=== PATIENT | male | born 1940 | race Caucasian/White ===

== ENCOUNTER 2020-05-18 18:34 | Inpatient (IN) ==
[2020-05-18] MEDS ORDERED: Furosemide 40 MG/4 ML VIAL IVP ONE (18:47)
[2020-05-18] MEDS ORDERED: cefTRIAXone 1,000 MG in 0.9 % Sodium Chloride Mini Bag 100 ML IVPB ONE (18:59)
[2020-05-18] MEDS ORDERED: Azithromycin 500 MG in 0.9 % Sodium Chloride 250 ML IVPB ONE (18:59)
[2020-05-18 19:14] LABS: Basophils # 0.1 K/mcL (0.0-0.2); Basophils % 0.6 %; Eosinophils # 0.4 K/mcL (0.0-0.6); Eosinophils % 2.8 %; Hematocrit 44.8 % (37.5-50.1); Hemoglobin 14.1 g/dL (12.9-16.9); Immature Granulocytes % 0.6 % (0-4); Lymphocytes # 3.8 K/mcL (0.6-4.6); Mean Corpuscular HGB Conc 31.5 g/dL (31.6-35.5); Mean Corpuscular Hemoglobin 28.9 pg (28.0-33.3); Mean Corpuscular Volume 91.8 fL (83.0-100.0); Mean Platelet Volume 12.1 fL (9.4-12.4); Monocytes # 0.9 K/mcL (0.0-1.3); Monocytes % 6.7 %; Neutrophils # 8.7 K/mcL (1.6-8.9); Platelet Count 202 K/mcL (140-400); Red Blood Count 4.88 M/mcL (4.19-5.50); Red Cell Distribution Width 14.9 % (11.5-14.5); Segmented Neutrophils % 62.3 %
[2020-05-18] MEDS ORDERED: cefTRIAXone 1,000 MG in Water for inj. (sterile) 10 ML IVP ONE (19:15)
[2020-05-18 19:23] LABS: INR 1.1
[2020-05-18 19:32] LABS: ABG Base Excess -1 mEq/L (-2 to 3); ABG HCO3 25 mEq/L (21-27); ABG Oxygen Saturation 92 % (95-98); ABG PCO2 49 mmHg (35-45); ABG PH 7.32 pH Units (7.32-7.45); ABG PO2 70 mmHg (85-104); ABG TCO2 27 mEq/L (20-26)
[2020-05-18 19:37] LABS: Potassium 3.3 mEq/L (3.5-5.1); Troponin I 0.03 ng/mL (< 0.04)
[2020-05-18] MEDS ORDERED: *HR* Atropine Sulfate 1 MG/10 ML SYRINGE IVP ONE (20:38)
[2020-05-18] MEDS ORDERED: *HR* Atropine Sulfate 1 MG/10 ML SYRINGE IVP STA (20:38)
[2020-05-18] MEDS ORDERED: 0.9 % Sodium Chloride 500 ML IV ONE (21:02)
[2020-05-18] MEDS ORDERED: Naloxone 0.4 MG/ML INJ IVP PRN (22:24)
[2020-05-18 23:56] LABS: Bilirubin,Urine Negative (Negative); Blood,Urine Negative (Negative); Clarity,Urine Clear (Clear); Color,Urine Light-Yellow (Yellow); Glucose,Urine (UA) Normal (Normal); Ketones,Urine Negative (Negative); Leukocyte Esterase,Urine Negative (Negative); Nitrite,Urine Negative (Negative); PH,Urine 5.5 pH Units (5.0-8.0); Protein,Urine Negative (Neg-Trace); Specific Gravity,Urine 1.012 (1.010-1.025); Urobilinogen,Urine Normal (Normal)
[2020-05-19] MEDS ORDERED: Perflutren Lipid Microsphere 1.3 ML in 0.9 % Sodium Chloride 8.7 ML IVP PRN (00:51)
[2020-05-19] MEDS ORDERED: Vancomycin 1,250 MG/262.5 ML IV.SOLN IVPB SCH (02:00)
[2020-05-19 02:33] LABS: Basophils % 0.3 %; Eosinophils # 0.1 K/mcL (0.0-0.6); Eosinophils % 0.5 %; Immature Granulocytes % 0.4 % (0-4); Lymphocytes # 0.9 K/mcL (0.6-4.6); Lymphocytes % 7.4 %; Mean Corpuscular HGB Conc 32.6 g/dL (31.6-35.5); Mean Corpuscular Hemoglobin 29.4 pg (28.0-33.3); Mean Corpuscular Volume 89.9 fL (83.0-100.0); Mean Platelet Volume 12.2 fL (9.4-12.4); Monocytes # 0.9 K/mcL (0.0-1.3); Monocytes % 7.4 %; Neutrophils # 9.8 K/mcL (1.6-8.9); Platelet Count 146 K/mcL (140-400); Red Blood Count 3.78 M/mcL (4.19-5.50); Red Cell Distribution Width 14.8 % (11.5-14.5); White Blood Count 11.7 K/mcL (4.3-11.1)
[2020-05-19 02:44] LABS: Hemoglobin 11.1 g/dL (12.9-16.9)
[2020-05-19 02:52] LABS: Calcium 8.2 mg/dL (8.6-10.3); Potassium 4.3 mEq/L (3.5-5.1)
[2020-05-19 03:51] LABS: Adenovirus Not Detected (Not Detect); Bordetella Pertussis Not Detected (Not Detect); Chlamydophila pneumoniae Not Detected (Not Detect); Coronavirus 229E Not Detected (Not Detect); Coronavirus HKU1 Not Detected (Not Detect); Coronavirus NL63 Not Detected (Not Detect); Coronavirus OC43 Not Detected (Not Detect); Human Metapneumovirus Not Detected (Not Detect); Human Rhinovirus/Enterovirus Not Detected (Not Detect); Influenza A Subtype 2009 H1 Not Detected (Not Detect); Influenza B Not Detected (Not Detect); Mycoplasma pneumoniae Not Detected (Not Detect); Parainfluenza Virus 1 Not Detected (Not Detect); Parainfluenza Virus 2 Not Detected (Not Detect); Parainfluenza Virus 3 Not Detected (Not Detect); Parainfluenza Virus 4 Not Detected (Not Detect); Respiratory Syncytial Virus Not Detected (Not Detect); SARS-CoV-2 Not Detected (Not Detect)
[2020-05-19] MEDS: Cefepime HCl 2,000 MG in Water for inj. (sterile) 20 ML IVP SCH ×2 (05:33→16:58)
[2020-05-19] MEDS: Apixaban 5 MG TABLET PO SCH ×2 (08:42→21:32)
[2020-05-19] MEDS: Furosemide 40 MG/4 ML VIAL IVP SCH ×2 (08:42→16:58)
[2020-05-19] MEDS ORDERED: Furosemide 40 MG/4 ML VIAL IVP SCH (09:00)
[2020-05-19] MEDS ORDERED: Ondansetron 4 MG/2 ML VIAL IVP PRN (12:32)
[2020-05-19] MEDS ORDERED: Ipratropium/Albuterol Neb 3 ML IH PRN (14:47)
[2020-05-19] MEDS ORDERED: cefTRIAXone 1,000 MG in Water for inj. (sterile) 10 ML IVP SCH (19:00)
[2020-05-19] MEDS ORDERED: Azithromycin 500 MG in 0.9 % Sodium Chloride 250 ML IVPB SCH (19:00)
[2020-05-19 19:53] LABS: Protein/Creatinine Ratio,Urine 0.26 mg/mg (0.00-0.20)
[2020-05-19] MEDS: traZODone 50 MG TABLET PO PRN (21:34)
[2020-05-20 01:26] LABS: Basophils # 0.1 K/mcL (0.0-0.2); Basophils % 0.8 %; Eosinophils # 0.3 K/mcL (0.0-0.6); Eosinophils % 3.7 %; Hematocrit 34.3 % (37.5-50.1); Hemoglobin 11.3 g/dL (12.9-16.9); Immature Granulocytes % 0.5 % (0-4); Lymphocytes # 1.1 K/mcL (0.6-4.6); Lymphocytes % 12.3 %; Mean Corpuscular HGB Conc 32.9 g/dL (31.6-35.5); Mean Corpuscular Hemoglobin 29.1 pg (28.0-33.3); Mean Corpuscular Volume 88.4 fL (83.0-100.0); Mean Platelet Volume 11.2 fL (9.4-12.4); Monocytes # 0.7 K/mcL (0.0-1.3); Monocytes % 8.3 %; Neutrophils # 6.5 K/mcL (1.6-8.9); Platelet Count 152 K/mcL (140-400); Red Blood Count 3.88 M/mcL (4.19-5.50); Red Cell Distribution Width 14.7 % (11.5-14.5); Segmented Neutrophils % 74.4 %; White Blood Count 8.7 K/mcL (4.3-11.1)
[2020-05-20 01:50] LABS: Calcium 8.5 mg/dL (8.6-10.3); Magnesium 1.7 mg/dL (1.6-2.6); Phosphorous 4.1 mg/dL (2.7-4.5); Potassium 3.8 mEq/L (3.5-5.1)
[2020-05-20] MEDS: Cefepime HCl 2,000 MG in Water for inj. (sterile) 20 ML IVP SCH ×2 (05:54→18:52)
[2020-05-20] MEDS: Apixaban 5 MG TABLET PO SCH ×2 (07:38→20:35)
[2020-05-20] MEDS: *HR* Amiodarone 200 MG TABLET PO SCH (07:38)
[2020-05-20] MEDS: Furosemide 40 MG/4 ML VIAL IVP SCH (07:39)
[2020-05-20] MEDS: traZODone 50 MG TABLET PO PRN (20:34)
[2020-05-21 01:35] LABS: Basophils # 0.1 K/mcL (0.0-0.2); Basophils % 0.6 %; Eosinophils # 0.6 K/mcL (0.0-0.6); Hematocrit 31.9 % (37.5-50.1); Hemoglobin 10.5 g/dL (12.9-16.9); Immature Granulocytes % 0.4 % (0-4); Lymphocytes # 1.1 K/mcL (0.6-4.6); Lymphocytes % 13.4 %; Mean Corpuscular HGB Conc 32.9 g/dL (31.6-35.5); Mean Corpuscular Hemoglobin 28.8 pg (28.0-33.3); Mean Corpuscular Volume 87.6 fL (83.0-100.0); Mean Platelet Volume 11.3 fL (9.4-12.4); Monocytes # 0.7 K/mcL (0.0-1.3); Monocytes % 9.1 %; Neutrophils # 5.6 K/mcL (1.6-8.9); Platelet Count 151 K/mcL (140-400); Red Blood Count 3.64 M/mcL (4.19-5.50); Red Cell Distribution Width 14.6 % (11.5-14.5); Segmented Neutrophils % 69.5 %; White Blood Count 8.1 K/mcL (4.3-11.1)
[2020-05-21 01:52] LABS: Calcium 8.5 mg/dL (8.6-10.3); Magnesium 1.7 mg/dL (1.6-2.6); Potassium 3.6 mEq/L (3.5-5.1)
[2020-05-21] MEDS: Cefepime HCl 2,000 MG in Water for inj. (sterile) 20 ML IVP SCH (05:22)
[2020-05-21 07:16] VITALS: BP 114/64
[2020-05-21] MEDS: Apixaban 5 MG TABLET PO SCH (07:52)
[2020-05-21] MEDS: *HR* Amiodarone 200 MG TABLET PO SCH (07:52)
[2020-05-21] MEDS ORDERED: Metoprolol XL (24 HR) Succ 25 MG TAB.ER.24H PO SCH (09:00)
[2020-05-21] MEDS ORDERED: Furosemide 40 MG TABLET PO SCH (09:00)
== END 2020-05-21 10:55 | disposition home or self-care (01) | DRG 871 ==
LOC: EMEROOARM 18:34 → 2NNU 18:34 → SUATTDRO 22:23 → 2NNU 22:50
PROVIDERS: ADMIT Internal Medicine; ATTEND Pharmacist

== ENCOUNTER 2020-06-01 16:07 | Inpatient (IN) ==
[2020-06-01] MEDS ORDERED: Ipratropium/Albuterol Neb 3 ML IH ONE (16:20)
[2020-06-01] MEDS ORDERED: Azithromycin 500 MG in 0.9 % Sodium Chloride 250 ML IVPB ONE (16:20)
[2020-06-01] MEDS ORDERED: cefTRIAXone 1,000 MG in Water for inj. (sterile) 10 ML IVP ONE (16:20)
[2020-06-01] MEDS ORDERED: methylPREDNISolone 125 MG/2 ML VIAL IVP ONE (16:21)
[2020-06-01 16:28] LABS: ABG Base Excess 0 mEq/L (-2 to 3); ABG HCO3 25 mEq/L (21-27); ABG Oxygen Saturation 97 % (95-98); ABG PCO2 42 mmHg (35-45); ABG PH 7.39 pH Units (7.32-7.45); ABG PO2 92 mmHg (85-104); ABG TCO2 27 mEq/L (20-26)
[2020-06-01 17:12] LABS: Basophils # 0.1 K/mcL (0.0-0.2); Basophils % 0.7 %; Eosinophils # 0.2 K/mcL (0.0-0.6); Eosinophils % 1.9 %; Hematocrit 41.9 % (37.5-50.1); Hemoglobin 13.5 g/dL (12.9-16.9); Immature Granulocytes % 0.4 % (0-4); Lymphocytes # 1.6 K/mcL (0.6-4.6); Lymphocytes % 15.1 %; Mean Corpuscular HGB Conc 32.2 g/dL (31.6-35.5); Mean Corpuscular Hemoglobin 28.8 pg (28.0-33.3); Mean Corpuscular Volume 89.3 fL (83.0-100.0); Mean Platelet Volume 12.1 fL (9.4-12.4); Monocytes # 0.6 K/mcL (0.0-1.3); Neutrophils # 7.8 K/mcL (1.6-8.9); Platelet Count 217 K/mcL (140-400); Red Blood Count 4.69 M/mcL (4.19-5.50); Red Cell Distribution Width 14.6 % (11.5-14.5); Segmented Neutrophils % 75.9 %; White Blood Count 10.3 K/mcL (4.3-11.1)
[2020-06-01 17:25] LABS: INR 1.1; Prothrombin Time 13.2 Seconds (9.4-12.1)
[2020-06-01 17:27] LABS: Activated Partial Thrombo Time 32.2 Seconds (26.0-36.0)
[2020-06-01 17:34] LABS: Alanine Aminotransferase 23 Units/L (7-52); Albumin 3.9 g/dL (3.5-5.7); Alkaline Phosphatase 60 Units/L (34-104); Aspartate Amino Transferase 21 Units/L (13-39); BUN/Creatinine Ratio 9 (6-26); Bilirubin,Direct 0.1 mg/dL (0.0-0.2); Bilirubin,Indirect 0.5 mg/dL (0.0-1.0); Bilirubin,Total 0.6 mg/dL (0.3-1.0); Blood Urea Nitrogen 16 mg/dL (8-23); C-Reactive Protein < 5 mg/L (Less than 10); Calcium 8.9 mg/dL (8.6-10.3); Carbon Dioxide 26 mEq/L (23-29); Chloride 96 mEq/L (98-107); Glucose 118 mg/dL (70-105); Lactate Dehydrogenase 169 Units/L (140-271); Magnesium 1.8 mg/dL (1.6-2.6); Osmolality,Calculated 274 (280-300); Phosphorous 3.6 mg/dL (2.7-4.5); Potassium 3.5 mEq/L (3.5-5.1); Sodium 131 mEq/L (136-145); Total Protein 7.9 g/dL (6.4-8.9); Troponin I < 0.03 ng/mL (< 0.04); eGFR For African Americans 47 (> 60); eGFR For Non-African Americans 39 (> 60)
[2020-06-01 17:53] LABS: Ferritin 91 ng/mL (20-250)
[2020-06-01] MEDS ORDERED: Isovue-370 500 ML BOTTLE IVP ONE (18:54)
[2020-06-01] MEDS ORDERED: 0.9 % Sodium Chloride 1,000 ML IVC ONE (18:54)
[2020-06-01 22:53] LABS: Adenovirus Not Detected (Not Detect); Bordetella Pertussis Not Detected (Not Detect); Chlamydophila pneumoniae Not Detected (Not Detect); Coronavirus 229E Not Detected (Not Detect); Coronavirus HKU1 Not Detected (Not Detect); Coronavirus NL63 Not Detected (Not Detect); Coronavirus OC43 Not Detected (Not Detect); Human Metapneumovirus Not Detected (Not Detect); Human Rhinovirus/Enterovirus Not Detected (Not Detect); Influenza A Subtype 2009 H1 Not Detected (Not Detect); Influenza B Not Detected (Not Detect); Mycoplasma pneumoniae Not Detected (Not Detect); Parainfluenza Virus 1 Not Detected (Not Detect); Parainfluenza Virus 2 Not Detected (Not Detect); Parainfluenza Virus 3 Not Detected (Not Detect); Parainfluenza Virus 4 Not Detected (Not Detect); Respiratory Syncytial Virus Not Detected (Not Detect); SARS-CoV-2 Not Detected (Not Detect)
[2020-06-02] MEDS ORDERED: Acetaminophen 325 MG TABLET PO PRN (02:11)
[2020-06-02] MEDS ORDERED: Naloxone 0.4 MG/ML INJ IVP PRN (02:11)
[2020-06-02] MEDS ORDERED: Ondansetron 4 MG/2 ML VIAL IVP PRN (02:11)
[2020-06-02] MEDS ORDERED: Acetylcysteine 10% 2 ML INHSOL IH SCH (04:00)
[2020-06-02] MEDS: Ipratropium/Albuterol Neb 3 ML IH SCH ×4 (05:00→22:01)
[2020-06-02] MEDS: Doxycycline 100 MG in 0.9 % Sodium Chloride Mini Bag 100 ML IVPB SCH ×2 (05:21→17:11)
[2020-06-02] MEDS ORDERED: 0.9 % Sodium Chloride 1,000 ML IVC SCH ×2 (07:00→08:45)
[2020-06-02] MEDS ORDERED: traZODone 50 MG TABLET PO PRN (07:20)
[2020-06-02] MEDS ORDERED: *HR* Amiodarone 200 MG TABLET PO SCH (09:00)
[2020-06-02 09:23] LABS: Basophils % 0.1 %; Eosinophils % 0.1 %; Hematocrit 38.2 % (37.5-50.1); Hemoglobin 12.6 g/dL (12.9-16.9); Immature Granulocytes % 0.6 % (0-4); Lymphocytes # 0.8 K/mcL (0.6-4.6); Lymphocytes % 4.8 %; Mean Corpuscular Hemoglobin 28.6 pg (28.0-33.3); Mean Corpuscular Volume 86.8 fL (83.0-100.0); Monocytes # 0.3 K/mcL (0.0-1.3); Monocytes % 1.8 %; Platelet Count 233 K/mcL (140-400); Red Cell Distribution Width 14.6 % (11.5-14.5); Segmented Neutrophils % 92.6 %
[2020-06-02 09:24] LABS: Neutrophils # 14.5 K/mcL (1.6-8.9); White Blood Count 15.6 K/mcL (4.3-11.1)
[2020-06-02] MEDS: Piperacillin/Tazobactam 3.375 GM in 0.9 % Sodium Chloride Mini Bag 100 ML IVPB SCH ×2 (09:32→15:16)
[2020-06-02] MEDS: amLODIPine 5 MG TABLET PO SCH (09:34)
[2020-06-02] MEDS: Metoprolol XL (24 HR) Succ 25 MG TAB.ER.24H PO SCH (09:34)
[2020-06-02 09:57] LABS: Calcium 9.2 mg/dL (8.6-10.3); Magnesium 1.7 mg/dL (1.6-2.6); Potassium 4.5 mEq/L (3.5-5.1)
[2020-06-02 16:50] LABS: Bilirubin,Urine Negative (Negative); Blood,Urine Negative (Negative); Clarity,Urine Clear (Clear); Color,Urine Light-Yellow (Yellow); Glucose,Urine (UA) Normal (Normal); Ketones,Urine Trace mg/dL (Negative); Leukocyte Esterase,Urine Negative (Negative); Mucus,Urine Few per lpf (None-Few); Nitrite,Urine Negative (Negative); Protein,Urine 30 mg/dL (Neg-Trace); RBC,Urine 0-3 per hpf (0-3); Specific Gravity,Urine > 1.030 (1.010-1.025); Urobilinogen,Urine Normal (Normal); WBC,Urine 0-3 per hpf (0-3)
[2020-06-02 18:41] LABS: ABG Base Excess 0 mEq/L (-2 to 3); ABG HCO3 24 mEq/L (21-27); ABG Oxygen Saturation 95 % (95-98); ABG PCO2 39 mmHg (35-45); ABG PO2 73 mmHg (85-104); ABG TCO2 25 mEq/L (20-26)
[2020-06-02] MEDS: Pantoprazole 40 MG VIAL IVP SCH (18:46)
[2020-06-02] MEDS: Furosemide 40 MG/4 ML VIAL IVP SCH (18:46)
[2020-06-02 21:46] LABS: Complement C3 102 mg/dL (87-200)
[2020-06-03] MEDS: MethylPREDNISolone 40 MG/ML VIAL IVP SCH ×4 (00:09→22:59)
[2020-06-03] MEDS: Piperacillin/Tazobactam 3.375 GM in 0.9 % Sodium Chloride Mini Bag 100 ML IVPB SCH ×2 (00:10→19:39)
[2020-06-03 03:12] LABS: Basophils % 0.1 %; Eosinophils % 0.1 %; Hemoglobin 11.9 g/dL (12.9-16.9); Immature Granulocytes % 0.5 % (0-4); Lymphocytes # 0.4 K/mcL (0.6-4.6); Lymphocytes % 2.6 %; Mean Corpuscular HGB Conc 33.1 g/dL (31.6-35.5); Mean Corpuscular Hemoglobin 29.6 pg (28.0-33.3); Mean Corpuscular Volume 89.6 fL (83.0-100.0); Mean Platelet Volume 11.3 fL (9.4-12.4); Monocytes # 0.6 K/mcL (0.0-1.3); Monocytes % 3.4 %; Neutrophils # 15.5 K/mcL (1.6-8.9); Platelet Count 211 K/mcL (140-400); Red Blood Count 4.02 M/mcL (4.19-5.50); Red Cell Distribution Width 14.9 % (11.5-14.5); Segmented Neutrophils % 93.3 %; White Blood Count 16.6 K/mcL (4.3-11.1)
[2020-06-03] MEDS: Ipratropium/Albuterol Neb 3 ML IH SCH ×4 (03:26→21:45)
[2020-06-03 03:31] LABS: Calcium 8.5 mg/dL (8.6-10.3); Magnesium 2.1 mg/dL (1.6-2.6); Potassium 4.1 mEq/L (3.5-5.1)
[2020-06-03] MEDS: Doxycycline 100 MG in 0.9 % Sodium Chloride Mini Bag 100 ML IVPB SCH (05:21)
[2020-06-03] MEDS: Furosemide 40 MG/4 ML VIAL IVP SCH ×2 (08:51→15:25)
[2020-06-03] MEDS: Metoprolol XL (24 HR) Succ 25 MG TAB.ER.24H PO SCH ×3 (08:52→20:54)
[2020-06-03] MEDS: amLODIPine 5 MG TABLET PO SCH (08:52)
[2020-06-03] MEDS: Pantoprazole 40 MG VIAL IVP SCH (08:52)
[2020-06-03] MEDS ORDERED: Perflutren Lipid Microsphere 1.3 ML in 0.9 % Sodium Chloride 8.7 ML IVP PRN (11:53)
[2020-06-03] MEDS ORDERED: *HR* Metoprolol 5 MG/5 ML VIAL IVP PRN (18:00)
[2020-06-03] MEDS: Doxycycline 100 MG CAPSULE PO SCH (20:54)
[2020-06-03] MEDS: Budesonide/Formoterol 160/4.5 1 PUFF INH IH SCH (21:45)
[2020-06-04] MEDS: Ipratropium/Albuterol Neb 3 ML IH SCH ×4 (03:59→23:31)
[2020-06-04 06:26] LABS: Hematocrit 34.3 % (37.5-50.1); Hemoglobin 11.3 g/dL (12.9-16.9); Mean Corpuscular HGB Conc 32.9 g/dL (31.6-35.5); Mean Corpuscular Volume 88.2 fL (83.0-100.0); Mean Platelet Volume 11.4 fL (9.4-12.4); Platelet Count 210 K/mcL (140-400); Red Blood Count 3.89 M/mcL (4.19-5.50); White Blood Count 16.1 K/mcL (4.3-11.1)
[2020-06-04 06:45] LABS: INR 1.1
[2020-06-04 07:03] LABS: Albumin 3.3 g/dL (3.5-5.7); Bilirubin,Direct 0.2 mg/dL (0.0-0.2); Bilirubin,Indirect 0.5 mg/dL (0.0-1.0); Bilirubin,Total 0.7 mg/dL (0.3-1.0); Globulin 3.2 g/dL (2.4-3.5); Magnesium 1.9 mg/dL (1.6-2.6); Total Protein 6.5 g/dL (6.4-8.9)
[2020-06-04 07:04] LABS: Calcium 8.8 mg/dL (8.6-10.3); Potassium 4.2 mEq/L (3.5-5.1)
[2020-06-04 07:17] LABS: Thyroid Stimulating Hormone 0.709 mcIU/mL (0.340-5.600)
[2020-06-04] MEDS: MethylPREDNISolone 40 MG/ML VIAL IVP SCH ×2 (08:59→16:17)
[2020-06-04] MEDS: Pantoprazole 40 MG VIAL IVP SCH (08:59)
[2020-06-04] MEDS ORDERED: Metoprolol XL (24 HR) Succ 50 MG TAB.ER.24H PO SCH (09:00)
[2020-06-04] MEDS: Doxycycline 100 MG CAPSULE PO SCH ×2 (09:00→20:45)
[2020-06-04] MEDS: Budesonide/Formoterol 160/4.5 1 PUFF INH IH SCH ×2 (10:20→23:31)
[2020-06-04] MEDS: Furosemide 40 MG/4 ML VIAL IVP SCH ×2 (10:34→17:07)
[2020-06-04] MEDS: amLODIPine 5 MG TABLET PO SCH (11:21)
[2020-06-04] MEDS ORDERED: Dexamethasone 4 MG/ML VIAL ONE (12:53)
[2020-06-04] MEDS ORDERED: Ondansetron 4 MG/2 ML VIAL ONE (12:53)
[2020-06-04] MEDS ORDERED: *HR* Propofol 200 MG/20 ML VIAL IVP ONE (12:53)
[2020-06-04] MEDS ORDERED: *HR* FentaNYL (PF) 100 MCG/2 ML VIAL ONE (12:53)
[2020-06-04] MEDS ORDERED: *HR* Succinylcholine 200 MG/10 ML VIAL IVP ONE (12:53)
[2020-06-04] MEDS ORDERED: Lidocaine -MPF 2% 2 ML VIAL ONE (12:53)
[2020-06-04] MEDS ORDERED: Lidocaine -MPF 4% 5 ML AMPUL ONE (12:53)
[2020-06-04 14:22] LABS: Source of Body Fluid RUL BAL
[2020-06-04 16:28] LABS: Appearance of Body Fluid Slightly Hazy (Clear); Volume of Body Fluid 30 mL
[2020-06-04] MEDS ORDERED: Ondansetron 4 MG/2 ML VIAL IVP PRN (17:44)
[2020-06-04] MEDS ORDERED: Naloxone 0.4 MG/ML INJ IVP PRN (17:44)
[2020-06-04] MEDS ORDERED: *HR* Metoprolol 5 MG/5 ML VIAL IVP PRN (17:44)
[2020-06-04] MEDS ORDERED: Perflutren Lipid Microsphere 1.3 ML in 0.9 % Sodium Chloride 8.7 ML IVP PRN (17:44)
[2020-06-04] MEDS ORDERED: Acetaminophen 325 MG TABLET PO PRN (17:44)
[2020-06-04] MEDS: Metoprolol XL (24 HR) Succ 50 MG TAB.ER.24H PO SCH (20:45)
[2020-06-04] MEDS: traZODone 50 MG TABLET PO PRN (22:03)
[2020-06-05] MEDS: MethylPREDNISolone 40 MG/ML VIAL IVP SCH ×2 (01:57→08:03)
[2020-06-05] MEDS: Ipratropium/Albuterol Neb 3 ML IH SCH ×4 (03:26→22:44)
[2020-06-05 03:35] LABS: Hematocrit 31.6 % (37.5-50.1); Hemoglobin 10.1 g/dL (12.9-16.9); Mean Corpuscular Hemoglobin 28.9 pg (28.0-33.3); Mean Corpuscular Volume 90.3 fL (83.0-100.0); Mean Platelet Volume 11.5 fL (9.4-12.4); Platelet Count 191 K/mcL (140-400); White Blood Count 11.9 K/mcL (4.3-11.1)
[2020-06-05 03:57] LABS: Calcium 8.6 mg/dL (8.6-10.3); Potassium 4.3 mEq/L (3.5-5.1)
[2020-06-05] MEDS: Metoprolol XL (24 HR) Succ 50 MG TAB.ER.24H PO SCH ×2 (08:03→23:17)
[2020-06-05] MEDS: Doxycycline 100 MG CAPSULE PO SCH ×2 (08:03→23:17)
[2020-06-05] MEDS: Aspirin Enteric Coated 81 MG Tablet PO SCH (08:03)
[2020-06-05] MEDS: Pantoprazole 40 MG VIAL IVP SCH (08:04)
[2020-06-05] MEDS ORDERED: Furosemide 40 MG TABLET PO SCH (09:00)
[2020-06-05] MEDS ORDERED: Aspirin Enteric Coated 81 MG Tablet PO SCH (09:00)
[2020-06-05 10:06] LABS: ANA IgG by ELISA NONE DETECTED (None Detected); Serine Protease-3 Antibody 3 AU/mL (0-19)
[2020-06-05 10:07] LABS: Mycoplasma pneumoniae IgG 0.7 U/L (<=0.09)
[2020-06-05] MEDS: Budesonide/Formoterol 160/4.5 1 PUFF INH IH SCH ×2 (10:54→22:47)
[2020-06-05] MEDS: amLODIPine 5 MG TABLET PO SCH (12:37)
[2020-06-05] MEDS: predniSONE 20 MG TABLET PO SCH (13:37)
[2020-06-05] MEDS ORDERED: Perflutren Lipid Microsphere 1.3 ML in 0.9 % Sodium Chloride 8.7 ML IVP PRN (14:12)
[2020-06-05] MEDS: traZODone 50 MG TABLET PO PRN (23:16)
[2020-06-06] MEDS: Ipratropium/Albuterol Neb 3 ML IH SCH ×4 (04:11→22:12)
[2020-06-06 04:31] LABS: Hematocrit 32.2 % (37.5-50.1); Hemoglobin 10.4 g/dL (12.9-16.9); Mean Corpuscular HGB Conc 32.3 g/dL (31.6-35.5); Mean Corpuscular Volume 89.7 fL (83.0-100.0); Mean Platelet Volume 11.8 fL (9.4-12.4); Platelet Count 184 K/mcL (140-400); Red Blood Count 3.59 M/mcL (4.19-5.50); Red Cell Distribution Width 14.8 % (11.5-14.5); White Blood Count 11.9 K/mcL (4.3-11.1)
[2020-06-06 04:51] LABS: Calcium 8.6 mg/dL (8.6-10.3); Potassium 4.2 mEq/L (3.5-5.1)
[2020-06-06] MEDS: predniSONE 20 MG TABLET PO SCH (08:49)
[2020-06-06] MEDS: Doxycycline 100 MG CAPSULE PO SCH ×2 (08:49→22:23)
[2020-06-06] MEDS: Aspirin Enteric Coated 81 MG Tablet PO SCH (08:50)
[2020-06-06] MEDS: Metoprolol XL (24 HR) Succ 50 MG TAB.ER.24H PO SCH ×2 (08:50→22:23)
[2020-06-06] MEDS: amLODIPine 5 MG TABLET PO SCH (08:50)
[2020-06-06] MEDS: Pantoprazole 40 MG VIAL IVP SCH (08:50)
[2020-06-06] MEDS: Budesonide/Formoterol 160/4.5 1 PUFF INH IH SCH ×2 (10:11→22:12)
[2020-06-06] MEDS: traZODone 50 MG TABLET PO PRN (23:17)
[2020-06-07 01:57] LABS: BUN/Creatinine Ratio 23 (6-26); Blood Urea Nitrogen 31 mg/dL (8-23); Calcium 8.2 mg/dL (8.6-10.3); Carbon Dioxide 28 mEq/L (23-29); Chloride 98 mEq/L (98-107); Glucose 110 mg/dL (70-105); Hematocrit 31.1 % (37.5-50.1); Hemoglobin 10.2 g/dL (12.9-16.9); Mean Corpuscular HGB Conc 32.8 g/dL (31.6-35.5); Mean Corpuscular Hemoglobin 29.7 pg (28.0-33.3); Mean Corpuscular Volume 90.4 fL (83.0-100.0); Mean Platelet Volume 11.7 fL (9.4-12.4); Osmolality,Calculated 279 (280-300); Platelet Count 188 K/mcL (140-400); Potassium 4.4 mEq/L (3.5-5.1); Red Blood Count 3.44 M/mcL (4.19-5.50); Red Cell Distribution Width 14.8 % (11.5-14.5); Sodium 131 mEq/L (136-145); White Blood Count 10.3 K/mcL (4.3-11.1); eGFR For African Americans > 60 (> 60); eGFR For Non-African Americans 51 (> 60)
[2020-06-07] MEDS: Ipratropium/Albuterol Neb 3 ML IH SCH ×4 (04:04→23:02)
[2020-06-07] MEDS: amLODIPine 5 MG TABLET PO SCH (08:07)
[2020-06-07] MEDS: Doxycycline 100 MG CAPSULE PO SCH (08:08)
[2020-06-07] MEDS: Metoprolol XL (24 HR) Succ 50 MG TAB.ER.24H PO SCH ×2 (08:08→20:43)
[2020-06-07] MEDS: predniSONE 20 MG TABLET PO SCH (08:08)
[2020-06-07] MEDS: Pantoprazole 40 MG VIAL IVP SCH (08:08)
[2020-06-07] MEDS: Aspirin Enteric Coated 81 MG Tablet PO SCH (08:08)
[2020-06-07] MEDS: Budesonide/Formoterol 160/4.5 1 PUFF INH IH SCH ×2 (11:37→23:02)
[2020-06-08] MEDS: traZODone 50 MG TABLET PO PRN ×2 (01:01→23:12)
[2020-06-08] MEDS: Ipratropium/Albuterol Neb 3 ML IH SCH ×4 (03:50→22:01)
[2020-06-08 06:55] LABS: Hematocrit 33.7 % (37.5-50.1); Hemoglobin 10.5 g/dL (12.9-16.9); Mean Corpuscular HGB Conc 31.2 g/dL (31.6-35.5); Mean Corpuscular Hemoglobin 28.3 pg (28.0-33.3); Mean Corpuscular Volume 90.8 fL (83.0-100.0); Platelet Count 171 K/mcL (140-400); Red Blood Count 3.71 M/mcL (4.19-5.50); Red Cell Distribution Width 14.7 % (11.5-14.5); White Blood Count 10.6 K/mcL (4.3-11.1)
[2020-06-08 07:14] LABS: Calcium 8.5 mg/dL (8.6-10.3); Potassium 4.1 mEq/L (3.5-5.1)
[2020-06-08] MEDS ORDERED: Furosemide 20 MG TABLET PO PRN (09:02)
[2020-06-08 09:13] LABS: Histoplasma spp.Ab by ID NONE DETECTED (None Detected)
[2020-06-08] MEDS: predniSONE 20 MG TABLET PO SCH (09:40)
[2020-06-08] MEDS: Aspirin Enteric Coated 81 MG Tablet PO SCH (09:40)
[2020-06-08] MEDS: Pantoprazole 40 MG VIAL IVP SCH (09:40)
[2020-06-08] MEDS: Metoprolol XL (24 HR) Succ 50 MG TAB.ER.24H PO SCH ×2 (09:40→19:26)
[2020-06-08] MEDS ORDERED: Heparin 1,000 UNITS/500 mL 500 ML ONE (09:46)
[2020-06-08] MEDS ORDERED: ISOVUE-370 200 ML INFUS..BTL ONE (09:46)
[2020-06-08] MEDS ORDERED: Nitroglycerin 1,000 MCG/10 ML VIAL IV ONE (09:46)
[2020-06-08] MEDS ORDERED: *HR* Heparin 10,000 UNIT/10 ML VIAL ONE (09:46)
[2020-06-08] MEDS ORDERED: 0.9 % Sodium Chloride 2,000 ML ONE (09:46)
[2020-06-08] MEDS ORDERED: *HR* Midazolam HCl 2 MG/2 ML VIAL ONE (09:51)
[2020-06-08] MEDS ORDERED: *HR* FentaNYL (PF) 100 MCG/2 ML VIAL ONE (09:51)
[2020-06-08] MEDS ORDERED: Tirofiban 12.5 MG/250ML 12.5 MG/250 ML BAG ONE (10:38)
[2020-06-08] MEDS ORDERED: *HR* Ticagrelor 90 MG TABLET ONE (10:47)
[2020-06-08] MEDS: Budesonide/Formoterol 160/4.5 1 PUFF INH IH SCH ×2 (10:52→22:29)
[2020-06-08] MEDS ORDERED: Tirofiban 12.5 MG/250ML 12.5 MG/250 ML BAG IVC SCH ×2 (11:30→12:00)
[2020-06-08] MEDS: amLODIPine 5 MG TABLET PO SCH (11:50)
[2020-06-08] MEDS ORDERED: *HR* Metoprolol 5 MG/5 ML VIAL IVP ONE (13:30)
[2020-06-08] MEDS ORDERED: Furosemide 40 MG/4 ML VIAL IVP ONE (13:31)
[2020-06-08] MEDS ORDERED: Furosemide 40 MG/4 ML VIAL ONE (13:34)
[2020-06-08 13:39] LABS: ABG Base Excess -1 mEq/L (-2 to 3); ABG HCO3 25 mEq/L (21-27); ABG Oxygen Saturation 96 % (95-98); ABG PCO2 42 mmHg (35-45); ABG PH 7.38 pH Units (7.32-7.45); ABG PO2 81 mmHg (85-104); ABG TCO2 26 mEq/L (20-26); Blood Gas Pressure Support 7 cm H2O
[2020-06-08] MEDS ORDERED: Nitroglycerin 1 INCH/GM PACKET ONE (13:39)
[2020-06-08 14:52] LABS: Basophils % 0.3 %; Eosinophils # 0.2 K/mcL (0.0-0.6); Eosinophils % 1.4 %; Hematocrit 40.2 % (37.5-50.1); Lymphocytes # 0.5 K/mcL (0.6-4.6); Lymphocytes % 3.8 %; Mean Corpuscular HGB Conc 32.1 g/dL (31.6-35.5); Mean Corpuscular Hemoglobin 29.3 pg (28.0-33.3); Mean Corpuscular Volume 91.2 fL (83.0-100.0); Monocytes # 0.4 K/mcL (0.0-1.3); Monocytes % 2.7 %; Neutrophils # 11.8 K/mcL (1.6-8.9); Platelet Count 211 K/mcL (140-400); Red Blood Count 4.41 M/mcL (4.19-5.50); Red Cell Distribution Width 14.9 % (11.5-14.5); Segmented Neutrophils % 89.8 %; White Blood Count 13.2 K/mcL (4.3-11.1)
[2020-06-08 14:56] LABS: Hemoglobin 12.9 g/dL (12.9-16.9)
[2020-06-08 15:08] LABS: Alanine Aminotransferase 22 Units/L (7-52); Albumin 3.4 g/dL (3.5-5.7); Alkaline Phosphatase 43 Units/L (34-104); Aspartate Amino Transferase 16 Units/L (13-39); BUN/Creatinine Ratio 19 (6-26); Bilirubin,Total 0.7 mg/dL (0.3-1.0); Blood Urea Nitrogen 29 mg/dL (8-23); Calcium 8.8 mg/dL (8.6-10.3); Carbon Dioxide 26 mEq/L (23-29); Chloride 96 mEq/L (98-107); Globulin 3.4 g/dL (2.4-3.5); Glucose 160 mg/dL (70-105); Osmolality,Calculated 277 (280-300); Potassium 4.9 mEq/L (3.5-5.1); Sodium 129 mEq/L (136-145); Total Protein 6.8 g/dL (6.4-8.9); Troponin I < 0.03 ng/mL (< 0.04); eGFR For African Americans 54 (> 60); eGFR For Non-African Americans 45 (> 60)
[2020-06-08] MEDS: Furosemide 40 MG/4 ML VIAL IVP SCH (17:18)
[2020-06-08 17:52] LABS: Adenovirus Not Detected (Not Detect); Bordetella Pertussis Not Detected (Not Detect); Chlamydophila pneumoniae Not Detected (Not Detect); Coronavirus 229E Not Detected (Not Detect); Coronavirus HKU1 Not Detected (Not Detect); Coronavirus NL63 Not Detected (Not Detect); Coronavirus OC43 Not Detected (Not Detect); Human Metapneumovirus Not Detected (Not Detect); Human Rhinovirus/Enterovirus Not Detected (Not Detect); Influenza A Subtype 2009 H1 Not Detected (Not Detect); Influenza B Not Detected (Not Detect); Mycoplasma pneumoniae Not Detected (Not Detect); Parainfluenza Virus 1 Not Detected (Not Detect); Parainfluenza Virus 2 Not Detected (Not Detect); Parainfluenza Virus 3 Not Detected (Not Detect); Parainfluenza Virus 4 Not Detected (Not Detect); Respiratory Syncytial Virus Not Detected (Not Detect); SARS-CoV-2 Not Detected (Not Detect)
[2020-06-08] MEDS: *HR* Ticagrelor 90 MG TABLET PO SCH (19:25)
[2020-06-09 03:18] LABS: Hematocrit 33.8 % (37.5-50.1); Mean Corpuscular HGB Conc 32.8 g/dL (31.6-35.5); Mean Corpuscular Hemoglobin 29.5 pg (28.0-33.3); Mean Corpuscular Volume 89.9 fL (83.0-100.0); Mean Platelet Volume 11.5 fL (9.4-12.4); Platelet Count 183 K/mcL (140-400); Red Blood Count 3.76 M/mcL (4.19-5.50); White Blood Count 14.6 K/mcL (4.3-11.1)
[2020-06-09 03:24] LABS: Hemoglobin 11.1 g/dL (12.9-16.9)
[2020-06-09 03:25] LABS: Calcium 8.5 mg/dL (8.6-10.3); Potassium 4.3 mEq/L (3.5-5.1)
[2020-06-09] MEDS: Ipratropium/Albuterol Neb 3 ML IH SCH ×4 (03:38→21:22)
[2020-06-09] MEDS: Aspirin 81 MG TAB.CHEW PO SCH (07:32)
[2020-06-09] MEDS: predniSONE 20 MG TABLET PO SCH (07:32)
[2020-06-09] MEDS: *HR* Ticagrelor 90 MG TABLET PO SCH ×2 (07:32→20:05)
[2020-06-09] MEDS: Pantoprazole 40 MG VIAL IVP SCH (07:33)
[2020-06-09] MEDS: Metoprolol XL (24 HR) Succ 50 MG TAB.ER.24H PO SCH ×2 (07:34→20:05)
[2020-06-09] MEDS: Furosemide 40 MG/4 ML VIAL IVP SCH (08:57)
[2020-06-09] MEDS ORDERED: lisinopriL 10 MG TABLET PO SCH (09:00)
[2020-06-09] MEDS: Budesonide/Formoterol 160/4.5 1 PUFF INH IH SCH ×2 (10:28→21:24)
[2020-06-09] MEDS ORDERED: Apixaban 5 MG TABLET PO SCH (21:00)
[2020-06-09] MEDS: traZODone 50 MG TABLET PO PRN (23:10)
[2020-06-10 02:48] LABS: Hematocrit 33.6 % (37.5-50.1); Hemoglobin 11.1 g/dL (12.9-16.9); Mean Corpuscular Hemoglobin 29.9 pg (28.0-33.3); Mean Corpuscular Volume 90.6 fL (83.0-100.0); Mean Platelet Volume 11.8 fL (9.4-12.4); Platelet Count 165 K/mcL (140-400); Red Blood Count 3.71 M/mcL (4.19-5.50); Red Cell Distribution Width 14.6 % (11.5-14.5); White Blood Count 16.3 K/mcL (4.3-11.1)
[2020-06-10 03:06] LABS: Calcium 8.5 mg/dL (8.6-10.3); Magnesium 2.1 mg/dL (1.6-2.6); Phosphorous 4.5 mg/dL (2.7-4.5); Potassium 4.2 mEq/L (3.5-5.1)
[2020-06-10] MEDS: Ipratropium/Albuterol Neb 3 ML IH SCH ×4 (04:07→22:43)
[2020-06-10] MEDS: predniSONE 20 MG TABLET PO SCH (07:27)
[2020-06-10] MEDS: *HR* Ticagrelor 90 MG TABLET PO SCH ×2 (07:28→20:53)
[2020-06-10] MEDS: lisinopriL 5 MG TABLET PO SCH (07:28)
[2020-06-10] MEDS: Aspirin 81 MG TAB.CHEW PO SCH (07:28)
[2020-06-10] MEDS: Metoprolol XL (24 HR) Succ 50 MG TAB.ER.24H PO SCH ×2 (07:28→20:52)
[2020-06-10] MEDS ORDERED: Furosemide 40 MG TABLET PO SCH (09:00)
[2020-06-10] MEDS ORDERED: Furosemide 40 MG/4 ML VIAL IVP SCH ×2 (09:00)
[2020-06-10] MEDS: Budesonide/Formoterol 160/4.5 1 PUFF INH IH SCH ×2 (10:02→22:43)
[2020-06-10] MEDS ORDERED: Amiodarone Premix 360 MG/200 ML BAG IVC ONE (11:59)
[2020-06-10] MEDS ORDERED: Amiodarone Premix 150 MG/100 ML BAG IVPB ONE (11:59)
[2020-06-10] MEDS: Amiodarone Premix 360 MG/200 ML BAG IVC SCH (18:52)
[2020-06-10] MEDS: Apixaban 5 MG TABLET PO SCH (20:53)
[2020-06-11 02:44] LABS: Basophils % 0.1 %; Eosinophils # 0.2 K/mcL (0.0-0.6); Eosinophils % 1.1 %; Hemoglobin 10.8 g/dL (12.9-16.9); Immature Granulocytes % 1.9 % (0-4); Lymphocytes # 0.9 K/mcL (0.6-4.6); Lymphocytes % 6.5 %; Mean Corpuscular HGB Conc 32.7 g/dL (31.6-35.5); Mean Corpuscular Volume 88.7 fL (83.0-100.0); Mean Platelet Volume 11.6 fL (9.4-12.4); Monocytes % 6.8 %; Neutrophils # 11.7 K/mcL (1.6-8.9); Platelet Count 161 K/mcL (140-400); Red Blood Count 3.72 M/mcL (4.19-5.50); Red Cell Distribution Width 14.7 % (11.5-14.5); Segmented Neutrophils % 83.6 %
[2020-06-11 03:02] LABS: Calcium 8.2 mg/dL (8.6-10.3); Phosphorous 4.2 mg/dL (2.7-4.5)
[2020-06-11] MEDS: Ipratropium/Albuterol Neb 3 ML IH SCH ×2 (04:01→11:27)
[2020-06-11] MEDS: Amiodarone Premix 360 MG/200 ML BAG IVC SCH (05:40)
[2020-06-11] MEDS: predniSONE 20 MG TABLET PO SCH (08:25)
[2020-06-11] MEDS: Aspirin 81 MG TAB.CHEW PO SCH (08:25)
[2020-06-11] MEDS: *HR* Ticagrelor 90 MG TABLET PO SCH (08:26)
[2020-06-11] MEDS: Apixaban 5 MG TABLET PO SCH (08:27)
[2020-06-11] MEDS: Metoprolol XL (24 HR) Succ 50 MG TAB.ER.24H PO SCH (08:27)
[2020-06-11] MEDS: lisinopriL 5 MG TABLET PO SCH ×2 (08:28→08:31)
[2020-06-11] MEDS ORDERED: Furosemide 40 MG TABLET PO SCH (09:00)
[2020-06-11] MEDS: Calcium Gluconate 1gm/50mL 1 GM/50 ML BAG IVPB SCH ×2 (09:06→10:09)
[2020-06-11 11:00] VITALS: BP 111/84
[2020-06-11] MEDS: Budesonide/Formoterol 160/4.5 1 PUFF INH IH SCH (11:27)
== END 2020-06-11 13:46 | disposition home or self-care (01) | DRG 981 ==
LOC: EMEROOARM 16:07 → 3ANU 16:07 → SUATTDRO 06-02 00:06 → 3ANU 06-02 00:50 → ICNU 06-02 17:45 → SUATTDRO 06-02 20:05 → 2ANU 06-04 17:42 → 2NNU 06-08 14:30
PROVIDERS: ADMIT Pharmacist; ATTEND Internal Medicine

== ENCOUNTER 2020-08-12 11:51 | Observation (INO) ==
[2020-08-12] MEDS ORDERED: Isovue-370 500 ML BOTTLE IVP ONE (12:12)
[2020-08-12 12:50] LABS: Basophils % 0.6 %; Eosinophils # 0.2 K/mcL (0.0-0.6); Eosinophils % 3.5 %; Hematocrit 37.3 % (37.5-50.1); Hemoglobin 12.1 g/dL (12.9-16.9); Immature Granulocytes % 0.3 % (0-4); Lymphocytes # 0.7 K/mcL (0.6-4.6); Lymphocytes % 10.2 %; Mean Corpuscular HGB Conc 32.4 g/dL (31.6-35.5); Mean Corpuscular Hemoglobin 28.7 pg (28.0-33.3); Mean Corpuscular Volume 88.4 fL (83.0-100.0); Mean Platelet Volume 12.5 fL (9.4-12.4); Monocytes # 0.4 K/mcL (0.0-1.3); Monocytes % 6.1 %; Neutrophils # 5.2 K/mcL (1.6-8.9); Platelet Count 162 K/mcL (140-400); Red Blood Count 4.22 M/mcL (4.19-5.50); Red Cell Distribution Width 14.2 % (11.5-14.5); Segmented Neutrophils % 79.3 %; White Blood Count 6.5 K/mcL (4.3-11.1)
[2020-08-12 13:15] LABS: BUN/Creatinine Ratio 12 (6-26); Blood Urea Nitrogen 25 mg/dL (8-23); Calcium 9.3 mg/dL (8.6-10.3); Carbon Dioxide 26 mEq/L (23-29); Chloride 99 mEq/L (98-107); Glucose 143 mg/dL (70-105); Osmolality,Calculated 283 (280-300); Potassium 3.8 mEq/L (3.5-5.1); Sodium 133 mEq/L (136-145); eGFR For African Americans 39 (> 60); eGFR For Non-African Americans 32 (> 60)
[2020-08-12 13:22] LABS: Troponin I < 0.03 ng/mL (< 0.04)
[2020-08-12] MEDS ORDERED: Furosemide 40 MG/4 ML VIAL IVP ONE (14:10)
[2020-08-12] MEDS ORDERED: Ondansetron 4 MG/2 ML VIAL IVP PRN (14:51)
[2020-08-12] MEDS ORDERED: Naloxone 0.4 MG/ML INJ IVP PRN (14:51)
[2020-08-12] MEDS ORDERED: Ipratropium/Albuterol Neb 3 ML IH PRN (14:58)
[2020-08-12] MEDS ORDERED: DilTIAZem 50 MG/50 ML IV.SOLN IVC SCH (15:00)
[2020-08-12] MEDS ORDERED: Dextrose Gel 15 GM/37.5 ML TUBE PO PRN ×2 (15:01)
[2020-08-12] MEDS ORDERED: D5% in Water 1,000 ML IVC PRN (15:01)
[2020-08-12] MEDS ORDERED: *HR* Dextrose 50 % in Water (Vial) 50 ML VIAL IVP PRN (15:01)
[2020-08-12 15:36] LABS: Magnesium 1.8 mg/dL (1.6-2.6)
[2020-08-12] MEDS: Insulin LISPRO 300 UNITS/3 ML VIAL SUBQ SCH (16:21)
[2020-08-12] MEDS: Apixaban 5 MG TABLET PO SCH ×2 (16:36→21:16)
[2020-08-12 17:22] LABS: Estimated Average Glucose 123 mg/dl; Hemoglobin A1C 5.9 %
[2020-08-12] MEDS ORDERED: Insulin LISPRO 300 UNITS/3 ML VIAL SUBQ SCH (21:00)
[2020-08-12] MEDS: Metoprolol XL (24 HR) Succ 50 MG TAB.ER.24H PO SCH (21:16)
[2020-08-12] MEDS: *HR* Ticagrelor 90 MG TABLET PO SCH (21:16)
[2020-08-12] MEDS ORDERED: Budesonide/Formoterol 160/4.5 1 PUFF INH IH SCH (22:00)
[2020-08-12] MEDS: traZODone 50 MG TABLET PO PRN (23:12)
[2020-08-13 02:24] LABS: Basophils # 0.1 K/mcL (0.0-0.2); Basophils % 0.8 %; Eosinophils # 0.3 K/mcL (0.0-0.6); Eosinophils % 4.4 %; Hematocrit 35.1 % (37.5-50.1); Hemoglobin 11.4 g/dL (12.9-16.9); Immature Granulocytes % 0.3 % (0-4); Lymphocytes # 0.9 K/mcL (0.6-4.6); Lymphocytes % 15.2 %; Mean Corpuscular HGB Conc 32.5 g/dL (31.6-35.5); Mean Corpuscular Hemoglobin 28.4 pg (28.0-33.3); Mean Corpuscular Volume 87.5 fL (83.0-100.0); Mean Platelet Volume 12.7 fL (9.4-12.4); Monocytes # 0.5 K/mcL (0.0-1.3); Monocytes % 7.9 %; Neutrophils # 4.4 K/mcL (1.6-8.9); Platelet Count 156 K/mcL (140-400); Red Blood Count 4.01 M/mcL (4.19-5.50); Red Cell Distribution Width 13.9 % (11.5-14.5); Segmented Neutrophils % 71.4 %; White Blood Count 6.2 K/mcL (4.3-11.1)
[2020-08-13 02:38] LABS: Albumin 3.7 g/dL (3.5-5.7); Albumin/Globulin Ratio 1.2 (1.1-2.2); Bilirubin,Total 0.6 mg/dL (0.3-1.0); Calcium 9.4 mg/dL (8.6-10.3); Globulin 3.2 g/dL (2.4-3.5); Potassium 3.9 mEq/L (3.5-5.1); Total Protein 6.9 g/dL (6.4-8.9)
[2020-08-13] MEDS ORDERED: Budesonide/Formoterol 160/4.5 1 PUFF INH IH PRN (03:20)
[2020-08-13] MEDS ORDERED: Levalbuterol 1 PUFF INHALER IH PRN (07:39)
[2020-08-13] MEDS ORDERED: NON-FORMULARY MEDICATION 1 EACH EACH (Ipratropium/Albuterol Sulfate 120 PUFF Inhaler) IH PRN (07:39)
[2020-08-13] MEDS: Insulin LISPRO 300 UNITS/3 ML VIAL SUBQ SCH ×2 (08:32→11:19)
[2020-08-13] MEDS: Ascorbic Acid 500 MG TABLET PO SCH (08:52)
[2020-08-13] MEDS: *HR* Ticagrelor 90 MG TABLET PO SCH (08:52)
[2020-08-13] MEDS: Apixaban 5 MG TABLET PO SCH ×2 (08:52→20:09)
[2020-08-13] MEDS: Metoprolol XL (24 HR) Succ 50 MG TAB.ER.24H PO SCH ×2 (08:53→20:10)
[2020-08-13] MEDS: Furosemide 20 MG/2 ML VIAL IVP SCH (08:54)
[2020-08-13] MEDS ORDERED: Aspirin 81 MG TAB.CHEW PO SCH (09:00)
[2020-08-13] MEDS ORDERED: *HR* Amiodarone 200 MG TABLET PO SCH ×2 (09:00)
[2020-08-13] MEDS ORDERED: Metoprolol XL (24 HR) Succ 25 MG TAB.ER.24H PO SCH (09:00)
[2020-08-13] MEDS ORDERED: *HR* Ticagrelor 90 MG TABLET PO SCH (12:17)
[2020-08-13 15:58] LABS: Complement C3 123 mg/dL (87-200)
[2020-08-13 16:03] LABS: Bilirubin,Urine Negative (Negative); Blood,Urine Negative (Negative); Clarity,Urine Clear (Clear); Color,Urine Light-Yellow (Yellow); Glucose,Urine (UA) Normal (Normal); Ketones,Urine Negative (Negative); Leukocyte Esterase,Urine Negative (Negative); Nitrite,Urine Negative (Negative); Protein,Urine Negative (Neg-Trace); Specific Gravity,Urine 1.012 (1.010-1.025); Urobilinogen,Urine Normal (Normal)
[2020-08-13 16:14] LABS: Creatinine,Urine 76 mg/dL
[2020-08-13] MEDS: *HR* Amiodarone 200 MG TABLET PO SCH (20:10)
[2020-08-13] MEDS: traZODone 50 MG TABLET PO PRN (23:26)
[2020-08-14 02:38] LABS: Magnesium 1.9 mg/dL (1.6-2.6); Potassium 3.7 mEq/L (3.5-5.1)
[2020-08-14 03:14] LABS: Hepatitis B Surface Antigen Nonreactive (Nonreactive)
[2020-08-14 03:42] LABS: Hepatitis C Virus Antibody Nonreactive (Nonreactive)
[2020-08-14 03:43] LABS: Hepatitis B Core IgM Nonreactive (Nonreactive)
[2020-08-14 04:25] LABS: Hepatitis A Antibody IgM Nonreactive (Nonreactive)
[2020-08-14] MEDS ORDERED: Magnesium Sulfate 1 GM/102 ML PIGGYBACK IVPB ONE (08:40)
[2020-08-14] MEDS: Furosemide 20 MG/2 ML VIAL IVP SCH (09:30)
[2020-08-14] MEDS: Metoprolol XL (24 HR) Succ 50 MG TAB.ER.24H PO SCH ×3 (09:30→09:55)
[2020-08-14] MEDS: *HR* Amiodarone 200 MG TABLET PO SCH (09:30)
[2020-08-14] MEDS: Ascorbic Acid 500 MG TABLET PO SCH (09:30)
[2020-08-14] MEDS: Apixaban 5 MG TABLET PO SCH (09:30)
[2020-08-14 11:10] VITALS: BP 99/74
[2020-08-15 22:55] LABS: Lambda Qnt Free Light Chains 41.13 mg/L (5.71-26.30)
[2020-08-16 08:35] LABS: Kappa Qnt Free Light Chains 81.18 mg/L (3.30-19.40)
[2020-08-16 10:20] LABS: ANA IgG by ELISA NONE DETECTED (None Detected)
[2020-08-18 11:05] LABS: Alpha 2 Globulin (PEP) 0.99 g/dL (0.48-1.05); Beta Globulin (PEP) 1.04 g/dL (0.48-1.10)
[2020-08-19 08:17] LABS: IFE Reflexed NOT DONE
== END 2020-08-14 13:46 | disposition home or self-care (01) ==
LOC: EMEROOARM 11:51 → 2NNU 11:51 → SUATTDRO 15:03 → 2NNU 15:48
PROVIDERS: ADMIT Internal Medicine; ATTEND General Practice

== ENCOUNTER 2020-10-16 21:16 | Inpatient (IN) ==
[2020-10-16] MEDS ORDERED: Isovue-370 500 ML BOTTLE IVP ONE (21:28)
[2020-10-16] MEDS ORDERED: Furosemide 40 MG/4 ML VIAL IVP ONE (21:28)
[2020-10-16 21:56] LABS: Basophils # 0.1 K/mcL (0.0-0.2); Basophils % 0.9 %; Eosinophils # 0.2 K/mcL (0.0-0.6); Eosinophils % 2.9 %; Hematocrit 31.7 % (37.5-50.1); Hemoglobin 10.1 g/dL (12.9-16.9); Immature Granulocytes % 0.6 % (0-4); Lymphocytes # 0.9 K/mcL (0.6-4.6); Lymphocytes % 11.3 %; Mean Corpuscular HGB Conc 31.9 g/dL (31.6-35.5); Mean Corpuscular Hemoglobin 26.5 pg (28.0-33.3); Mean Corpuscular Volume 83.2 fL (83.0-100.0); Mean Platelet Volume 11.8 fL (9.4-12.4); Monocytes # 0.5 K/mcL (0.0-1.3); Monocytes % 6.8 %; Neutrophils # 6.2 K/mcL (1.6-8.9); Platelet Count 241 K/mcL (140-400); Red Blood Count 3.81 M/mcL (4.19-5.50); Red Cell Distribution Width 14.6 % (11.5-14.5); Segmented Neutrophils % 77.5 %
[2020-10-16 22:15] LABS: BUN/Creatinine Ratio 8 (6-26); Blood Urea Nitrogen 15 mg/dL (8-23); Carbon Dioxide 27 mEq/L (23-29); Chloride 90 mEq/L (98-107); Glucose 125 mg/dL (70-105); Osmolality,Calculated 266 (280-300); Potassium 4.2 mEq/L (3.5-5.1); Sodium 127 mEq/L (136-145); Troponin I < 0.03 ng/mL (< 0.04); eGFR For African Americans 45 (> 60); eGFR For Non-African Americans 37 (> 60)
[2020-10-16] MEDS ORDERED: Azithromycin 500 MG in 0.9 % Sodium Chloride 250 ML IVPB ONE (23:34)
[2020-10-16] MEDS ORDERED: cefTRIAXone 1,000 MG in Water for inj. (sterile) 10 ML IVP ONE (23:34)
[2020-10-17] MEDS ORDERED: Melatonin 3 MG TABLET PO PRN (01:42)
[2020-10-17] MEDS ORDERED: Ondansetron 4 MG/2 ML VIAL IVP PRN (01:42)
[2020-10-17] MEDS ORDERED: Naloxone 0.4 MG/ML INJ IVP PRN (01:42)
[2020-10-17] MEDS ORDERED: Levalbuterol 1 PUFF INHALER IH PRN (01:46)
[2020-10-17 03:07] LABS: Basophils # 0.1 K/mcL (0.0-0.2); Basophils % 0.9 %; Eosinophils # 0.2 K/mcL (0.0-0.6); Eosinophils % 2.7 %; Hematocrit 29.3 % (37.5-50.1); Hemoglobin 9.1 g/dL (12.9-16.9); Immature Granulocytes % 0.4 % (0-4); Lymphocytes # 0.7 K/mcL (0.6-4.6); Lymphocytes % 9.7 %; Mean Corpuscular HGB Conc 31.1 g/dL (31.6-35.5); Mean Corpuscular Hemoglobin 25.6 pg (28.0-33.3); Mean Corpuscular Volume 82.3 fL (83.0-100.0); Mean Platelet Volume 12.2 fL (9.4-12.4); Monocytes # 0.5 K/mcL (0.0-1.3); Monocytes % 7.4 %; Neutrophils # 5.5 K/mcL (1.6-8.9); Platelet Count 230 K/mcL (140-400); Red Blood Count 3.56 M/mcL (4.19-5.50); Red Cell Distribution Width 14.6 % (11.5-14.5); Segmented Neutrophils % 78.9 %
[2020-10-17 03:12] LABS: INR 1.3; Prothrombin Time 14.8 Seconds (9.4-12.1)
[2020-10-17 03:21] LABS: Magnesium 1.7 mg/dL (1.6-2.6)
[2020-10-17] MEDS: *HR* Amiodarone 200 MG TABLET PO SCH (08:57)
[2020-10-17] MEDS: Metoprolol XL (24 HR) Succ 25 MG TAB.ER.24H PO SCH (08:58)
[2020-10-17] MEDS: Aspirin 81 MG TAB.CHEW PO SCH (08:58)
[2020-10-17] MEDS: Furosemide 40 MG/4 ML VIAL IVP SCH ×2 (08:58→17:10)
[2020-10-17] MEDS: Apixaban 5 MG TABLET PO SCH ×2 (08:59→20:33)
[2020-10-17] MEDS ORDERED: Furosemide 40 MG/4 ML VIAL IVP ONE (13:36)
[2020-10-17] MEDS ORDERED: traZODone 50 MG TABLET PO PRN (14:48)
[2020-10-18 06:46] VITALS: BP 109/71
[2020-10-18] MEDS: Furosemide 40 MG/4 ML VIAL IVP SCH (07:47)
[2020-10-18] MEDS: Aspirin 81 MG TAB.CHEW PO SCH (07:47)
[2020-10-18] MEDS: Metoprolol XL (24 HR) Succ 25 MG TAB.ER.24H PO SCH (07:47)
[2020-10-18] MEDS: *HR* Amiodarone 200 MG TABLET PO SCH (07:47)
[2020-10-18] MEDS: Apixaban 5 MG TABLET PO SCH (07:47)
[2020-10-18 08:24] LABS: Basophils # 0.1 K/mcL (0.0-0.2); Basophils % 0.7 %; Eosinophils # 0.3 K/mcL (0.0-0.6); Eosinophils % 4.6 %; Hematocrit 28.9 % (37.5-50.1); Hemoglobin 9.1 g/dL (12.9-16.9); Immature Granulocytes % 0.3 % (0-4); Lymphocytes # 0.8 K/mcL (0.6-4.6); Lymphocytes % 12.4 %; Mean Corpuscular HGB Conc 31.5 g/dL (31.6-35.5); Mean Corpuscular Hemoglobin 26.2 pg (28.0-33.3); Mean Corpuscular Volume 83.3 fL (83.0-100.0); Mean Platelet Volume 11.8 fL (9.4-12.4); Monocytes # 0.5 K/mcL (0.0-1.3); Monocytes % 7.1 %; Platelet Count 209 K/mcL (140-400); Red Blood Count 3.47 M/mcL (4.19-5.50); Red Cell Distribution Width 14.6 % (11.5-14.5); Segmented Neutrophils % 74.9 %; White Blood Count 6.7 K/mcL (4.3-11.1)
[2020-10-18 08:44] LABS: Calcium 8.9 mg/dL (8.6-10.3); Potassium 3.7 mEq/L (3.5-5.1)
== END 2020-10-18 11:46 | disposition home or self-care (01) | DRG 291 ==
LOC: EMEROOARM 21:16 → 2ANU 21:16 → SUATTDRO 23:55 → 2ANU 10-17 00:30
PROVIDERS: ADMIT Internal Medicine; ATTEND Internal Medicine